=== PATIENT | male | born 1950 | race Hispanic/Latino ===

== ENCOUNTER 2022-06-08 08:48 | Emergency (ER) | payer MEDICARE, MEDICAID ==
[~2022-06-08] VITALS: Ht 165.1 cm; Wt 107.5 kg
[~2022-06-08 08:48] MED LIST: ACETAMINOPHEN500 MG PO; ARNUITY ELLIP100 MCG IH; ARTHRITIS PAIN50 GM TP; ASPIRIN81 MG PO; CARTIA XT240 MG PO; GABAPENTIN300 MG PO; GLUCOTROL XL5 MG PO; ISOSORBIDE DINI30 MG PO; METFORMIN HCL1000 M1 PO; NITROSTAT0.4 MG SL; OXYCODONE HCL5 MG PO; PRADAXA150 MG PO; PRAVASTATIN SOD40 MG PO; PROAIR HFA8.5 GM INH; SENNA LAX8.6 MG PO; TAMSULOSIN HCL0.4 MG PO; TERBINAFINE HC250 MG PO; TOPROL XL100 MG PO; TOPROL XL25 MG PO; TRAZODONE HCL50 MG PO; VENTOLIN HFA18 GM INH
--- OUTSIDE RECORDS SUMMARY | 2022-06-08 08:51 | XMS ---
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 EKev VISIT COUNT (12 MO.) 1 [facility] TOTAL 1 NOTE: Visits indicate total known visits. ED/UCC VISIT TRACKING (12 MO.) 06/08/2022 08:48 [facility] [place] TYPE: Emergency COMPLAINT: - POST OP PAIN INPATIENT VISIT TRACKING (12 MO.) No inpatient visits to display in this time frame [email or web address]
[2022-06-08] MEDS ORDERED: OXYCODONE HCL5 MG PO (09:28)
== END 2022-06-08 09:39 | disposition home or self-care (01) ==
LOC: ED 08:48
DX: G89.29 Other chronic pain (principal); M25.561 Pain in right knee; Z96.651 Presence of right artificial knee joint; Z88.0 Allergy status to penicillin
CPT/HCPCS: 99283